=== PATIENT | male | born 1965 | race Caucasian/White ===

== ENCOUNTER 2016-09-13 11:09 | Emergency (ER) | payer OTHER ==
[2016-09-13 11:20] VITALS: BP 180/110
[2016-09-13] MEDS ORDERED: Tetan/Diph/Pertus SYR(Tdap)* 0.5 ML SYR(BOOSTRIX) use SYR IM ONE (11:39)
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
--- NOTE | 2016-09-13 12:16 | RAD ---
HISTORY: Right hand trauma COMPARISONS: None VIEWS: 2, Frontal and lateral views of the right hand FINDINGS: BONE DENSITY: Normal. BONES: There is remote posttraumatic deformity to the fifth metacarpal. JOINTS: There is no arthropathy. ALIGNMENT: There is no dislocation. SOFT TISSUES: Unremarkable. OTHER FINDINGS: There is no radiopaque foreign body. IMPRESSION: REMOTE POSTTRAUMATIC DEFORMITY TO THE RIGHT FIFTH METACARPAL. NO RADIOPAQUE FOREIGN BODY. NO ACUTE OSSEOUS INJURY. IF SYMPTOMS PERSIST, RECOMMEND REPEAT IMAGING.
[2016-09-13] MEDS ORDERED: Cephalexin CAP* 500 MG PO ONE (12:42)
== END 2016-09-13 13:05 | disposition home or self-care (01) ==
LOC: ED 11:09
DX: S61.411A Laceration without foreign body of right hand, initial encounter (principal); R60.0 Localized edema; W22.8XXA Striking against or struck by other objects, initial encounter; Y93.89 Activity, other specified; F17.210 Nicotine dependence, cigarettes, uncomplicated; M70.32 Other bursitis of elbow, left elbow; Y93.9 Activity, unspecified
CPT/HCPCS: 12002; 90471; 90715; 99282; A9270-GY

== ENCOUNTER 2016-09-19 08:06 | Emergency (ER) | payer OTHER ==
[2016-09-19] MEDS ORDERED: Lisinopril TAB* 10 MG PO ONE (08:48)
[2016-09-19 09:43] VITALS: BP 154/112
--- NOTE | 2016-09-20 07:35 | ED ---
Mariza Louie Salem, scribed for Jareth Talavera MD on 09/19/16 at 0834 . Throat Pain/Nasal Congestion - HPI Summary HPI Summary: Patient is a 50 y/o male who presents to the ED with epistaxis since this morning. He reports waking up this morning not feeling well and then noticing the gushing blood. He reports a sore throat yesterday night, but denies blowing his nose recently. Pt is unable to report which naris he is bleeding from. His blood pressure was 156/117 upon examination. Pt reports using an electrical heater in his bedroom. Pt also reports moving from [place] recently. He was prescribed Lisinopril (10mg per day) and Hydrochlorothiazide in [place], but has not taken it since moving. - History of Current Complaint Chief Complaint: EDEpistaxis Time Seen by Provider: 09/19/16 08:17 Hx Obtained From: Patient Onset/Duration: Gradual Onset, Lasting Hours, Still Present Severity: Moderate Associated Signs And Symptoms: Positive: Negative Cough: None - Allergies/Home Medications Allergies/Adverse Reactions: Allergies Allergy/AdvReac Type Severity Reaction Status Date / Time No Known Drug Allergy Allergy See Comment Verified 09/13/16 11:11 PMH/Surg Hx/FS Hx/Imm Hx Endocrine/Hematology History: Denies: Hx Diabetes Cardiovascular History: Reports: Hx Hypertension Denies: Hx Pacemaker/ICD History: Denies: Hx Renal Disease Sensory History: Denies: Hx Hearing Aid Psychiatric History: Denies: Hx Panic Disorder - Surgical History Surgery Procedure, Year, and Place: RIGHT LEG CRUSHED FEMUR REPLACE WITH [facility] 2013 Infectious Disease History: No Infectious Disease History: Denies: Traveled Outside the [place] in Last 30 Days - Family History Known Family History: Negative: Cardiac Disease - Social History Alcohol Use: Occasionally Hx Substance Use: Yes Substance Use Type: Reports: Marijuana Hx Tobacco Use: Yes Smoking Status (MU): Current Every Day Smoker Review of Systems Negative: Fever, Chills Negative: Erythema Positive: Epistaxis, Sore Throat Negative: Chest Pain Negative: Shortness Of Breath, Cough Negative: Abdominal Pain, Vomiting, Nausea Negative: dysuria, hematuria Negative: Myalgia, Edema Negative: Rash Neurological: Other - No dizziness. All Other Systems Reviewed And Are Negative: Yes Physical Exam - Summary Physical Exam Summary: Constitutional: Well-developed, Well-nourished, Alert. (-) Distressed Skin: Warm, Dry HENT: Normocephalic; Atraumatic. No active bleeding. Eyes: Conjunctiva normal Neck: Musculoskeletal ROM normal neck. (-) JVD, (-) Stridor, (-) Tracheal deviation Cardio: Rhythm regular, rate normal, Heart sounds normal; Intact distal pulses; The pedal pulses are 2+ and symmetric. Radial pulses are 2+ and symmetric. (-) Murmur Pulmonary/Chest wall: Effort normal. (-) Respiratory distress, (-) Wheezes, (-) Rales Abd: Soft, (-) Tenderness, (-) Distension, (-) Guarding, (-) Rebound Musculoskeletal: (-) Edema Lymph: (-) Cervical adenopathy Neuro: Alert, Oriented x3 Psych: Mood and affect Normal Triage Information Reviewed: Yes Vital Signs On Initial Exam: Initial Vitals Temp Pulse Resp BP Pulse Ox 97.1 F 106 18 186/105 96 09/19/16 08:07 09/19/16 08:07 09/19/16 08:07 09/19/16 08:07 09/19/16 08:07 Vital Signs Reviewed: Yes Diagnostics - Vital Signs Vital Signs Temp Pulse Resp BP Pulse Ox 09/19/16 08:07 97.1 F 106 18 186/105 96 - Laboratory Lab Statement: Any lab studies that have been ordered have been reviewed, and results considered in the medical decision making process. EENT Course/Dx - Course Course Of Treatment: Pt presents with epistaxis, but was not actively bleeding upon examination. He was given Lisinopril to lower his blood pressure. Observed pt in ED for one hour with no active bleeding. Will instruct him to use saline nasal spray and bedroom humidifier at home. - Diagnoses Provider Diagnoses: Hypertension, Epistaxis, Medication refill Discharge - Discharge Plan Condition: Stable Disposition: HOME Prescriptions: Lisinopril TAB* [Prinivil TAB 10 MG*] 10 mg PO DAILY #30 tab Patient Education Materials: Lisinopril (By mouth), Nosebleed (ED), Hypertension (ED) Referrals: [facility] [place] [facility] [Outside] Additional Instructions: Follow up with [facility] [place] physician referral. The documentation as recorded by the Mariza shell Salem accurately reflects the service I personally performed and the decisions made by , Jareth Talavera MD.
== END 2016-09-19 09:43 | disposition home or self-care (01) ==
LOC: ED 08:06
DX: R04.0 Epistaxis (principal); J02.9 Acute pharyngitis, unspecified; F17.210 Nicotine dependence, cigarettes, uncomplicated; I10 Essential (primary) hypertension; Z76.0 Encounter for issue of repeat prescription
CPT/HCPCS: 99282; A9270-GY

== ENCOUNTER 2016-09-19 23:50 | Emergency (ER) | payer OTHER ==
[2016-09-20] MEDS ORDERED: Lidocaine 4% TOPICAL* 50 ML TOP.SOLN ONE (00:20)
[2016-09-20] MEDS ORDERED: Phenylephrine 0.5% NASAL* BTL ONE (00:21)
[2016-09-20] MEDS ORDERED: NS 0.9% 1000 ML* 1,000 ML IV ONE (00:49)
[2016-09-20 01:13] LABS: Hematocrit 40 % (42-52); Hemoglobin 13.3 g/dl (14.0-18.0); Mean Corpuscular HGB Conc 34 g/dl (31-36); Mean Corpuscular Hemoglobin 31 pg (27-31); Mean Corpuscular Volume 93 fL (80-94); Mean Platelet Volume 8 um3 (7.4-10.4); Red Blood Count 4.23 10^6/ul (4.0-5.4); Red Cell Distribution Width 14 % (10.5-15); White Blood Count 14.5 10^3/ul (3.5-10.8)
[2016-09-20 01:24] LABS: BUN/Creatinine Ratio 24.3 (8-20); Calcium 9.3 mg/dL (8.6-10.3); EGFR African American 93.7 (>60); EGFR Non-African American 72.9 (>60); Globulin 2.5 g/dL (2-4); Potassium 3.6 mmol/L (3.5-5.0); Total Bilirubin 0.3 mg/dL (0.2-1.0); Total Protein 6.5 g/dL (6.4-8.9)
--- NOTE | 2016-09-20 02:25 | ED ---
Chay Louie Claudia, scribed for Cassie Hernandez MD on 09/20/16 at 0016 . Throat Pain/Nasal Congestion - HPI Summary HPI Summary: 50 year old male presents to the ED with epistaxis. Pt notes 2 episodes within the last 24 hours. He states the first one started this am and he came to the ED and it spontaneously resolved. The second one started around 2200 this evening and has been constant since. Pt denies any other Sx including fever and chills. Pt denies any blood thinners, or trauma to the nose. - History of Current Complaint Chief Complaint: EDEpistaxis Time Seen by Provider: 09/19/16 23:53 Hx Obtained From: Patient Onset/Duration: Sudden Onset Associated Signs And Symptoms: Positive: Nasal Discharge - EPISTAXIS - Allergies/Home Medications Allergies/Adverse Reactions: Allergies Allergy/AdvReac Type Severity Reaction Status Date / Time No Known Drug Allergy Allergy See Comment Verified 09/13/16 11:11 PMH/Surg Hx/FS Hx/Imm Hx Previously Healthy: Yes Endocrine/Hematology History: Denies: Hx Diabetes Cardiovascular History: Reports: Hx Hypertension Denies: Hx Pacemaker/ICD History: Denies: Hx Renal Disease Sensory History: Denies: Hx Hearing Aid Psychiatric History: Denies: Hx Panic Disorder - Surgical History Surgery Procedure, Year, and Place: RIGHT LEG CRUSHED FEMUR REPLACE WITH [facility] 2013 Infectious Disease History: Denies: Traveled Outside the in Last 30 Days - Family History Known Family History: Negative: Cardiac Disease - Social History Occupation: Unemployed Lives: Alone Alcohol Use: Occasionally Substance Use Type: Reports: Marijuana Hx Tobacco Use: Yes Smoking Status (MU): Current Every Day Smoker Review of Systems Constitutional: Negative Negative: Fever, Chills Eyes: Negative Positive: Epistaxis Cardiovascular: Negative Respiratory: Negative Gastrointestinal: Negative Genitourinary: Negative Musculoskeletal: Negative Skin: Negative Neurological: Negative Psychological: Normal All Other Systems Reviewed And Are Negative: Yes Physical Exam Triage Information Reviewed: Yes Vital Signs On Initial Exam: Initial Vitals Temp Pulse Resp BP Pulse Ox 97.4 F 116 16 121/76 96 09/19/16 23:52 09/19/16 23:52 09/19/16 23:52 09/19/16 23:52 09/19/16 23:52 Vital Signs Reviewed: Yes Appearance: Positive: Well-Appearing, No Pain Distress Skin: Positive: Warm, Skin Color Reflects Adequate Perfusion, Dry Eyes: Positive: EOMI, IAM ENT: Positive: Pharynx normal, TMs normal Neck: Positive: Supple, Nontender Respiratory/Lung Sounds: Positive: Clear to Auscultation, Breath Sounds Present. Negative: Rales, Rhonchi, Wheezes Cardiovascular: Positive: RRR. Negative: Murmur, Rub, Leg Edema Left, Leg Edema Right Abdomen Description: Positive: Nontender, Soft. Negative: Distended, Guarding Musculoskeletal: Positive: Strength/ROM Intact Neurological: Positive: Sensory/Motor Intact, Alert, Oriented to Person Place, Time, CN Intact II-III Psychiatric: Positive: Affect/Mood Appropriate Procedures - Procedure Summary Procedure Summary: pt without bleeding but with area of ant septum that appeared to be oozing. after neosynephrine and lidocaine numbing area cauterized without discomfort Diagnostics - Vital Signs Vital Signs Temp Pulse Resp BP Pulse Ox 09/19/16 23:52 97.4 F 116 16 121/76 96 - Laboratory Lab Results: Lab Results 09/20/16 09/20/16 Range/Units 00:45 00:45 WBC 14.5 H (3.5-10.8) 10^3/ul RBC 4.23 (4.0-5.4) 10^6/ul Hgb 13.3 L (14.0-18.0) g/dl Hct 40 L (42-52) % MCV 93 (80-94) fL MCH 31 (27-31) pg MCHC 34 (31-36) g/dl RDW 14 (10.5-15) % Plt Count 251 (150-450) 10^3/ul MPV 8 (7.4-10.4) um3 Neut % (Auto) 77.2 (38-83) % Lymph % (Auto) 13.9 L (25-47) % Juab % (Auto) 6.7 (1-9) % Eos % (Auto) 1.8 (0-6) % Baso % (Auto) 0.4 (0-2) % Absolute Neuts (auto) 11.2 H (1.5-7.7) 10^3/ul Absolute Lymphs (auto) 2.0 (1.0-4.8) 10^3/ul Absolute Monos (auto) 1.0 H (0-0.8) 10^3/ul Absolute Eos (auto) 0.3 (0-0.6) 10^3/ul Absolute Basos (auto) 0.1 (0-0.2) 10^3/ul Absolute Nucleated RBC 0.01 10^3/ul Nucleated RBC % 0.1 Sodium 136 (133-145) mmol/L Potassium 3.6 (3.5-5.0) mmol/L Chloride 104 (101-111) mmol/L Carbon Dioxide 22 (22-32) mmol/L Anion Gap 10 (2-11) mmol/L BUN 26 H (6-24) mg/dL Creatinine 1.07 (0.67-1.17) mg/dL Est GFR ( Amer) 93.7 (>60) Est GFR (Non-Af Amer) 72.9 (>60) BUN/Creatinine Ratio 24.3 H (8-20) Glucose 93 (70-100) mg/dL Calcium 9.3 (8.6-10.3) mg/dL Total Bilirubin 0.30 (0.2-1.0) mg/dL AST 20 (13-39) U/L ALT 18 (7-52) U/L Alkaline Phosphatase 77 (34-104) U/L Total Protein 6.5 (6.4-8.9) g/dL Albumin 4.0 (3.2-5.2) g/dL Globulin 2.5 (2-4) g/dL Albumin/Globulin Ratio 1.6 (1-3) Result Diagrams: 09/20/16 00:45 09/20/16 00:45 Lab Statement: Any lab studies that have been ordered have been reviewed, and results considered in the medical decision making process. EENT Course/Dx - Course Course Of Treatment: 50 yo male with a 2nd episode of epistaxis tonight that resolved before arrival. area of concern for bleeding was cauterized. before cauterization pt got light headed from the discomfort of the blood clot in his nose, this was before clearing it and was a little hypotensive, fluids given labs drawn and pt did well - Diagnoses Provider Diagnoses: Epistaxis Discharge - Discharge Plan Condition: Stable Disposition: HOME The documentation as recorded by the Chay shell Claudia accurately reflects the service I personally performed and the decisions made by , Cassie Hernandez MD.
[2016-09-20 03:17] VITALS: BP 130/80
== END 2016-09-20 03:17 | disposition home or self-care (01) ==
LOC: ED 23:50
DX: R04.0 Epistaxis (principal); F17.210 Nicotine dependence, cigarettes, uncomplicated
CPT/HCPCS: 36415; 80053; 85025; 99283; A9270-GY

== ENCOUNTER 2016-09-20 03:40 | Emergency (ER) | payer OTHER ==
--- NOTE | 2016-09-20 05:00 | ED ---
Progress - Progress Note Progress Note: pt was out in lobby and nose started bleeding again very slowly. cautery was extended over lower anterior septum with good results and pt was discharged again Course/Dx - Diagnoses Provider Diagnoses: Epistaxis
[2016-09-20] MEDS ORDERED: Lidocaine 4% TOPICAL* 50 ML TOP.SOLN ONE (06:04)
[2016-09-20] MEDS ORDERED: Phenylephrine 0.5% NASAL* BTL ONE (06:05)
[2016-09-20] MEDS ORDERED: Phenylephrine 0.25% NASAL* PUFF ONE (06:10)
[2016-09-20 08:04] VITALS: BP 127/80
--- NOTE | 2016-09-20 08:36 | ED ---
Mariza Louie Salem, scribed for Gertrudis Vanegas MD on 09/20/16 at 0831 . Progress - Progress Note Progress Note: Recalled from Dr. Hernandez: pt was out in [facility] and nose started bleeding again very slowly. cautery was extended over lower anterior septum with good results and pt was discharged again Re-evaluated by Dr. Vanegas. 0825 Patient was signed out from Dr. Hernandez. He is a 50 y/o male who presents with epistaxis since yesterday. Pt reports he was in the ED yesterday for the same complaint, was discharged, and returned at 0000 today. Pt was about to be discharged when bleeding returned. He denies a headache and a hx of epistaxis. PMHx significant for HTN and asthma. Pt with miracel packing in left nares. Pt with blood and clot from right nare No bleeding side visulaized after suction and neosynepherine Placed miracel packing on right side with diluted lidocaine and epi. no active bleeding VSS Will sit for 15 min and then ambulate Pt comfortable and in agreement with plan 0853 No recurrent bleeding. Pt walked department - feels okay Will give po and discharge Pt has Rx cephalexin Course/Dx - Diagnoses Provider Diagnoses: Epistaxis Discharge - Discharge Plan Condition: Guarded Disposition: HOME Patient Education Materials: Nosebleed (ED) Referrals: No Primary Care Phys,NOPCP [Primary Care Provider] - Kehinde Khan MD [Medical Doctor] - 2 Days The documentation as recorded by the Mariza shell Salem accurately reflects the service I personally performed and the decisions made by me, Gertrudis Vanegas MD.
== END 2016-09-20 09:05 | disposition home or self-care (01) ==
LOC: ED 03:40
DX: R04.0 Epistaxis (principal)
CPT/HCPCS: 99283; A9270-GY

== ENCOUNTER 2020-11-08 17:18 | Inpatient (IN) ==
[2020-11-08] MEDS ORDERED: Albuterol/Ipratropium NEB.SOL (2.5/0.5 MG) 3 ML NEB.SOLN INH ONE (17:37)
[2020-11-08] MEDS ORDERED: methylPREDNISolone 125 mg 2 ML VIAL IV ONE ×2 (17:38→17:50)
[2020-11-08] MEDS ORDERED: LORazepam 2 mg VIAL 1 ml IV PUSH ONE (17:50)
[2020-11-08] MEDS ORDERED: Lorazepam PYXIS KEY PRN (17:50)
[2020-11-08] MEDS ORDERED: NS 0.9% 1000 ml BAG 1,000 ML IV ONE (17:51)
[2020-11-08 17:55] LABS: ABS Basophils 0.1 10^3/ul (0-0.2); ABS Eosinophils 0.1 10^3/ul (0-0.6); ABS Lymphocytes 0.5 10^3/ul (1.0-4.8); ABS Monocytes 0.5 10^3/ul (0-0.8); ABS Neutrophils 8.7 10^3/ul (1.5-7.7); Eosinophil % 0.6 %; Hematocrit 47 % (42-52); Hemoglobin 16.1 g/dL (14.0-18.0); Lymphocyte % 5.2 %; Mean Corpuscular HGB Conc 34 g/dL (31-36); Mean Corpuscular Hemoglobin 35 pg (27-31); Mean Corpuscular Volume 102 fL (80-94); Mean Platelet Volume 7.5 fL (7.4-10.4); Platelet Count 262 10^3/uL (150-450); Red Blood Count 4.58 10^6 /uL (4.18-5.48); Red Cell Distribution Width 14 % (10-15); White Blood Count 9.9 10^3/uL (3.5-10.8)
[2020-11-08 18:10] LABS: Albumin 4.4 g/dL (3.2-5.2); Albumin/Globulin Ratio 1.7 (1-3); Calcium 9.4 mg/dL (8.6-10.3); EGFR African American 122.8 (>60); EGFR Non-African American 101.5 (>60); Globulin 2.6 g/dL (2-4); Potassium 3.8 mmol/L (3.5-5.0)
[2020-11-08] MEDS ORDERED: hydrALAZINE 20 mg/ml 1 ML Vial IV IV SLOW PU ONE (18:35)
[2020-11-08 18:53] LABS: Troponin I 0.01 ng/mL (<0.03)
[2020-11-08] MEDS ORDERED: Thiamine 100 MG/ML 2 ml VIAL (200 mg) IM ONE (19:50)
[2020-11-08] MEDS ORDERED: Labetalol IV 5 MG/ML 20 ml VIAL IV PUSH ONE (19:53)
[2020-11-08] MEDS ORDERED: Albuterol/Ipratropium NEB.SOL (2.5/0.5 MG) 3 ML NEB.SOLN INH PRN (19:54)
[2020-11-08 20:09] LABS: Urine Appearance Clear; Urine Bilirubin Negative (Negative); Urine Blood Negative (Negative); Urine Color Yellow; Urine Glucose 1+(50 mg/dL) (Negative); Urine Ketones Trace (Negative); Urine Nitrite Negative (Negative); Urine Protein 1+(30 mg/dL) (Negative); Urine Specific Gravity 1.009 (1.002-1.030); Urine Urobilinogen Negative (Negative)
[2020-11-08 20:20] LABS: Urine Bacteria Absent (Absent); Urine Red Blood Cell Trace(0-2/hpf) (Absent); Urine White Blood Cell Trace(0-5/hpf) (Absent)
[2020-11-08] MEDS: Heparin 5000 UNITS/ML 1 mL VIAL SUBCUT SCH (22:21)
[2020-11-09 05:49] LABS: ABS Lymphocytes 0.2 10^3/ul (1.0-4.8); ABS Monocytes 0.2 10^3/ul (0-0.8); ABS Neutrophils 3.4 10^3/ul (1.5-7.7); Hematocrit 48 % (42-52); Hemoglobin 16.9 g/dL (14.0-18.0); Lymphocyte % 5.4 %; Mean Corpuscular HGB Conc 35 g/dL (31-36); Mean Corpuscular Hemoglobin 36 pg (27-31); Mean Corpuscular Volume 102 fL (80-94); Mean Platelet Volume 8.1 fL (7.4-10.4); Nucleated Red Blood Cells % 0.1; Platelet Count 219 10^3/uL (150-450); Red Blood Count 4.69 10^6 /uL (4.18-5.48); Red Cell Distribution Width 14 % (10-15); White Blood Count 3.8 10^3/uL (3.5-10.8)
[2020-11-09 05:59] LABS: Calcium 9.8 mg/dL (8.6-10.3); EGFR Non-African American 88.4 (>60)
[2020-11-09 06:52] LABS: Potassium 4.2 mmol/L (3.5-5.0)
[2020-11-09] MEDS: Multivitamins/Minerals TAB PO SCH (08:35)
[2020-11-09] MEDS: Heparin 5000 UNITS/ML 1 mL VIAL SUBCUT SCH (08:35)
[2020-11-09 09:29] LABS: Magnesium 1.8 mg/dL (1.9-2.7)
[2020-11-09] MEDS ORDERED: Albuterol HFA INHALER 8 gm MDI INH PRN (09:33)
[2020-11-09] MEDS ORDERED: Magnesium Sulfate 2 gm BAG 2 GM/50 ML BAG IVPB ONE (15:14)
[2020-11-09] MEDS ORDERED: hydrALAZINE 20 mg/ml 1 ML Vial IV IV SLOW PU PRN (15:18)
[2020-11-09] MEDS ORDERED: Enoxaparin 40 MG/0.4 ML SYR SUBCUT SCH (21:00)
[2020-11-09] MEDS ORDERED: Mometasone/Formoter 100/5 MDI INH SCH (21:00)
[2020-11-10 07:51] LABS: Calcium 9.2 mg/dL (8.6-10.3); Magnesium 1.8 mg/dL (1.9-2.7); Potassium 3.5 mmol/L (3.5-5.0)
[2020-11-10] MEDS ORDERED: Magnesium Sulfate 2 gm BAG 2 GM/50 ML BAG IVPB ONE (07:53)
[2020-11-10] MEDS: Multivitamins/Minerals TAB PO SCH (08:50)
[2020-11-10 09:40] LABS: Albumin 3.7 g/dL (3.2-5.2); Total Bilirubin 0.9 mg/dL (0.2-1.0)
[2020-11-10 09:45] LABS: Albumin/Globulin Ratio 1.3 (1-3); Globulin 2.8 g/dL (2-4); Total Protein 6.5 g/dL (6.4-8.9)
[2020-11-10 10:16] VITALS: BP 142/94
[2020-11-10 12:38] LABS: Hepatitis B Surface Antigen Nonreactive (Nonreactive)
[2020-11-10 12:43] LABS: Hepatitis A Ab IgM Negative (Negative)
[2020-11-10 12:44] LABS: Hepatitis B Core IgM Nonreactive (Nonreactive)
[2020-11-10 12:55] LABS: Hepatitis C Antibody Negative (Negative)
[2020-11-15 15:37] LABS: Mono-Oligosaccharide/Di-Oligos 0.26 (0.00-0.10)
== END 2020-11-10 13:32 | disposition home or self-care (01) ==
LOC: ED 17:18 → MEDTELE 17:18
PROVIDERS: ADMIT Internal Medicine; ATTEND Pediatrics